=== PATIENT | female | born 1995 | race Caucasian/White ===

== ENCOUNTER 2018-06-16 23:35 | Observation (INO) ==
[2018-06-16 19:17] LABS: Lymphocytes % 6.4 %; Monocytes % 4.1 %; Red Cell Distribution Width 12.5 % (11.5-14.5)
[2018-06-16 19:19] LABS: Basophils # 0.1 K/mcL (0.0-0.2); Basophils % 0.2 %; Hematocrit 27.6 % (35.3-44.9); Hemoglobin 9.7 g/dL (11.5-15.4); Immature Granulocytes % 1.1 % (0-4); Lymphocytes # 2.7 K/mcL (0.6-4.6); Mean Corpuscular HGB Conc 35.1 g/dL (31.6-35.5); Mean Corpuscular Hemoglobin 30.2 pg (28.0-33.3); Monocytes # 1.7 K/mcL (0.0-1.3); Platelet Count 185 K/mcL (140-400); Red Blood Count 3.21 M/mcL (3.82-4.97); Segmented Neutrophils % 88.2 %
[2018-06-16 19:27] LABS: INR 0.9; Prothrombin Time 10.4 Seconds (9.4-12.1)
[2018-06-16 19:29] LABS: Activated Partial Thrombo Time 28.5 Seconds (26.0-36.0)
[2018-06-16 20:22] LABS: Bilirubin,Urine Negative (Negative); Blood,Urine Moderate (Negative); Clarity,Urine Clear (Clear); Color,Urine Yellow (Yellow); Glucose,Urine (UA) 100 mg/dL (Normal); Ketones,Urine 40 mg/dL (Negative); Leukocyte Esterase,Urine Negative (Negative); Nitrite,Urine Negative (Negative); Protein,Urine 100 mg/dL (Neg-Trace); Specific Gravity,Urine 1.012 (1.010-1.025); Urobilinogen,Urine Normal (Normal)
[2018-06-16 20:24] LABS: Bacteria,Urine None Seen per hpf (None-Few); RBC,Urine 15-30 per hpf (0-3); Squamous Epithelial Cell,Urine Many per lpf (None-Few)
[2018-06-16 20:58] LABS: Hyaline Casts,Urine Few per lpf (None-Few)
[~2018-06-16 23:35] MED LIST: Lidocaine -MPF 1% 2 ML VIAL INFILT ONE; Ringers Solution, Lactated 1,000 ML IVC SCH; miSOPROStol 100 MCG TABLET RC STA
[2018-06-17 04:22] LABS: Basophils % 0.1 %; Immature Granulocytes % 0.6 % (0-4); Red Cell Distribution Width 12.7 % (11.5-14.5)
[2018-06-17 04:24] LABS: Hematocrit 22.9 % (35.3-44.9); Hemoglobin 8.3 g/dL (11.5-15.4); Lymphocytes # 3.8 K/mcL (0.6-4.6); Lymphocytes % 14.6 %; Mean Corpuscular HGB Conc 36.2 g/dL (31.6-35.5); Mean Corpuscular Volume 85.4 fL (83.0-100.0); Mean Platelet Volume 10.7 fL (9.4-12.4); Monocytes # 1.2 K/mcL (0.0-1.3); Monocytes % 4.7 %; Neutrophils # 20.8 K/mcL (1.6-8.9); Platelet Count 159 K/mcL (140-400); Red Blood Count 2.68 M/mcL (3.82-4.97)
[2018-06-17 05:33] LABS: Platelet Estimate Normal (Normal); Reactive Lymphocytes Present (Not Present)
[2018-06-17 05:34] LABS: Hypochromasia Present (Not Present)
--- NOTE | 2018-06-17 08:19 | OB/GYN History & Physical ---
Date of Encounter: 06/16/18 Time of Encounter: 18:00 Assessment and Plan (1) Status post vaginal delivery Current visit: Yes Status: Acute Increased WBC s/p Admit for observation Consider abx if WBC doesn't fall (2) hemorrhage Current visit: Yes Status: Acute 800mcg cytotec given rectally bleeding stopped will admit for observation of bleeding Qualifiers: hemorrhage type: third-stage Qualified Code(s): O72.0 - Third- stage hemorrhage History of Present Illness Chief complaint: PPH HPI: Ms. Bush is a 22 year old female G1 now P1 who is 2 hours pp presenting from [facility] with PPH. Per [facility] she lost about 1100 cc of blood after delivering her baby. She reports she feels lightheaded and dizzy. GBS+ Past Med Surg Social Fam HX - Past Medical History Medical history: no medical history Psychiatric history: no psych history - Past Surgical History Surgical History: no surgical history - Social History Smoking Status: Never smoker Smokeless Tobacco Status: No Alcohol use: none Drug use: none Obstetrical History - Pregnancies : 1 Para: 0 Term: 0 : 0 Ab's: 0 Livin Medications and Allergies Allergy/AdvReac Type Severity Reaction Status Date / Time No Known Allergies Allergy Verified 06/17/18 04:54 Review of System OB All systems PM: reviewed and no additional remarkable complaints except as stated Exam - Vital Signs Vital signs: Initial Vital Signs Temp Pulse Resp BP Pulse Ox 98.2 F 108 14 119/77 99 06/16/18 23:30 06/16/18 23:30 06/16/18 23:30 06/16/18 23:30 06/16/18 23:30 - Constitutional Constitutional: well developed, well nourished, average body habitus, moderate distress - HEENT HEENT: Normocephaly, Mucus Membranes Moist - Neck Neck exam: full ROM - Lungs Respiratory exam: CTAB - Cardiovascular Cardiovascular exam: RRR, +S1, +S2 - Breasts Breast: bilateral: normal - Abdomen Abdomen: Present: bowel sounds normal, non tender - Extremities Extremities exam: normal capillary refill, normal inspection, radial pulses palpable and symmetrical - Vulva Vulva: bilateral: normal - Vagina Vagina: Present: normal moisture - Uterus Uterus exam: Present: normal size, normal contour - Adnexa Adnexa: bilateral: normal Results Result Diagrams: 06/17/18 04:05 Abnormal lab results WBC 26.0 K/mcL (4.3-11.1) H 06/17/18 04:05 RBC 2.68 M/mcL (3.82-4.97) L 06/17/18 04:05 Hgb 8.3 g/dL (11.5-15.4) L 06/17/18 04:05 Hct 22.9 % (35.3-44.9) L 06/17/18 04:05 MCHC 36.2 g/dL (31.6-35.5) H 06/17/18 04:05 Neutrophils # 20.8 K/mcL (1.6-8.9) H 06/17/18 04:05 Reactive Lymphocytes Present (Not Present) A 06/17/18 04:05 Hypochromasia Present (Not Present) A 06/17/18 04:05 D-Dimer 6521 ng/mLFEU (0-500) H 06/16/18 18:50 Urine Protein 100 mg/dL (Neg-Trace) H 06/16/18 20:08 Urine Glucose (UA) 100 mg/dL (Normal) H 06/16/18 20:08 Urine Ketones 40 mg/dL (Negative) H 06/16/18 20:08 Urine Blood Moderate (Negative) H 06/16/18 20:08 Urine Microscopic RBC 15-30 per hpf (0-3) H 06/16/18 20:08 Urine Microscopic WBC 3-5 per hpf (0-3) H 06/16/18 20:08 Ur Squamous Epith Cells Many per lpf (None-Few) H 06/16/18 20:08 All other labs normal. - VTE Reasons for not Prescribing Prophylaxis: Treatment not Indicated - Low risk for VTE
[2018-06-17 08:24] VITALS: BP 113/77
--- NOTE | 2018-06-17 08:28 | Discharge Summary ---
Date of Encounter: 06/17/18 Time of Encounter: 08:26 - Discharge Diagnosis (1) Status post vaginal delivery Priority: Primary Status: Acute Comments: Follow up with center midwives as planned return for complications as needed Discharge home (2) hemorrhage Priority: Secondary Status: Acute Qualifiers: hemorrhage type: third-stage Qualified Code(s): O72.0 - Third- stage hemorrhage - Discharge Medications Allergies/Adverse Reactions: Allergy/AdvReac Type Severity Reaction Status Date / Time No Known Allergies Allergy Verified 06/17/18 04:54 Data Procedures and tests throughout hospitalization: Laboratory Tests 06/16/18 06/16/18 06/16/18 18:50 18:50 18:50 WBC 41.9 H* RBC 3.21 L Hgb 9.7 L Hct 27.6 L MCV 86.0 MCH 30.2 MCHC 35.1 RDW 12.5 Plt Count 185 MPV 11.0 Immature Gran % 1.1 Seg Neutrophils % 88.2 Lymphocytes % 6.4 Monocytes % 4.1 Eosinophils % 0.0 Basophils % 0.2 Neutrophils # 37.0 H Lymphocytes # 2.7 Monocytes # 1.7 H Eosinophils # 0.0 Basophils # 0.1 Reactive Lymphocytes Platelet Estimate Hypochromasia PT 10.4 INR 0.9 APTT 28.5 Fibrinogen 246 D-Dimer 6521 H Urine Color Urine Clarity Urine pH Ur Specific [place] Urine Protein Urine Glucose (UA) Urine Ketones Urine Blood Urine Nitrite Urine Bilirubin Urine Urobilinogen Ur Leukocyte Esterase Urine Microscopic RBC Urine Microscopic WBC Ur Squamous Epith Cells Urine Bacteria Hyaline Casts Blood Type A POSITIVE Antibody Screen NEGATIVE 06/16/18 06/17/18 20:08 04:05 WBC 26.0 H RBC 2.68 L Hgb 8.3 L Hct 22.9 L MCV 85.4 MCH 31.0 MCHC 36.2 H RDW 12.7 Plt Count 159 MPV 10.7 Immature Gran % 0.6 Seg Neutrophils % 80.0 Lymphocytes % 14.6 Monocytes % 4.7 Eosinophils % 0.0 Basophils % 0.1 Neutrophils # 20.8 H Lymphocytes # 3.8 Monocytes # 1.2 Eosinophils # 0.0 Basophils # 0.0 Reactive Lymphocytes Present A Platelet Estimate Normal Hypochromasia Present A PT INR APTT Fibrinogen D-Dimer Urine Color Yellow Urine Clarity Clear Urine pH 6.0 Ur Specific [place] 1.012 Urine Protein 100 H Urine Glucose (UA) 100 H Urine Ketones 40 H Urine Blood Moderate H Urine Nitrite Negative Urine Bilirubin Negative Urine Urobilinogen Normal Ur Leukocyte Esterase Negative Urine Microscopic RBC 15-30 H Urine Microscopic WBC 3-5 H Ur Squamous Epith Cells Many H Urine Bacteria None Seen Hyaline Casts Few Blood Type Antibody Screen Labs on day of discharge: Labs from last 24 hours 06/17/18 06/16/18 06/16/18 04:05 20:08 18:50 WBC 26.0 H RBC 2.68 L Hgb 8.3 L Hct 22.9 L MCV 85.4 MCH 31.0 MCHC 36.2 H RDW 12.7 Plt Count 159 MPV 10.7 Immature Gran % 0.6 Seg Neutrophils % 80.0 Lymphocytes % 14.6 Monocytes % 4.7 Eosinophils % 0.0 Basophils % 0.1 Neutrophils # 20.8 H Lymphocytes # 3.8 Monocytes # 1.2 Eosinophils # 0.0 Basophils # 0.0 Reactive Lymphocytes Present A Platelet Estimate Normal Hypochromasia Present A PT INR APTT Fibrinogen D-Dimer Urine Color Yellow Urine Clarity Clear Urine pH 6.0 Ur Specific [place] 1.012 Urine Protein 100 H Urine Glucose (UA) 100 H Urine Ketones 40 H Urine Blood Moderate H Urine Nitrite Negative Urine Bilirubin Negative Urine Urobilinogen Normal Ur Leukocyte Esterase Negative Urine Microscopic RBC 15-30 H Urine Microscopic WBC 3-5 H Ur Squamous Epith Cells Many H Urine Bacteria None Seen Hyaline Casts Few Blood Type A POSITIVE Antibody Screen NEGATIVE 06/16/18 06/16/18 18:50 18:50 WBC 41.9 H* RBC 3.21 L Hgb 9.7 L Hct 27.6 L MCV 86.0 MCH 30.2 MCHC 35.1 RDW 12.5 Plt Count 185 MPV 11.0 Immature Gran % 1.1 Seg Neutrophils % 88.2 Lymphocytes % 6.4 Monocytes % 4.1 Eosinophils % 0.0 Basophils % 0.2 Neutrophils # 37.0 H Lymphocytes # 2.7 Monocytes # 1.7 H Eosinophils # 0.0 Basophils # 0.1 Reactive Lymphocytes Platelet Estimate Hypochromasia PT 10.4 INR 0.9 APTT 28.5 Fibrinogen 246 D-Dimer 6521 H Urine Color Urine Clarity Urine pH Ur Specific [place] Urine Protein Urine Glucose (UA) Urine Ketones Urine Blood Urine Nitrite Urine Bilirubin Urine Urobilinogen Ur Leukocyte Esterase Urine Microscopic RBC Urine Microscopic WBC Ur Squamous Epith Cells Urine Bacteria Hyaline Casts Blood Type Antibody Screen Date of admission: 06/16/18 18:48 Primary care physician: PCP NONE Discharging clinician: Kimebr Dixon Anticipated date of discharge: 06/17/18 - Patient Status Disposition: Home, Self-Care Condition: Good Functional capacity at discharge: independent ambulation Overall status at discharge: patient is progressing back to baseline - Discharge Instructions Follow Up With: NONE,PCP [Primary Care Provider] - - Diet and Activity Activity: increase activity as tolerated Diet: regular diet Hospital Course TRANSFER SPECIALIST Reason for admission: other Discharge diagnosis: other Hospital course: Patient presented 2 hours status post spontaneous vaginal delivery of a [facility]. She arrived with bleeding mostly under control. Uterine exploration was performed under ultrasound guidance and a large clot was removed from the uterus. And a micrograms of Cytotec was given rectally. Bleeding subsided and she was admitted for observation secondary to severely elevated white blood cell count and questionable hemoglobin. After 12 hours of monitoring her white blood cell count decreased by half and her hemoglobin remained stable. She will be discharged home in stable condition with follow-up at the center. Time Attestation: Total time spent providing and/or coordinating discharge services: Time Spent: Less than 30 minutes Exam - Constitutional Vitals: Temp Pulse Resp BP Pulse Ox 97.5 F L 105 14 113/77 99 06/17/18 08:24 06/17/18 08:24 06/17/18 08:24 06/17/18 08:24 06/17/18 08:24 General appearance IM: A&O X 3 - Respiratory Respiratory exam: Present: CTAB - Cardiovascular Cardiovascular exam IM: Present: RRR, +S1, +S2 - GI/Abdominal GI/Abdominal exam IM: normal bowel sounds, no peritoneal signs - Rectal Rectal exam: deferred - Uterine Tone: Firm Uterus Position: 4 Fingers Below Umbilicus, Midline - Extremities Exam Extremities exam IM: Present: normal capillary refill, normal inspection, radial pulses palpable and symmetrical - Neurological Exam Neurological exam: alert, CN II-XII intact, normal gait, oriented X3, reflexes normal, no focal deficits, strengths equal and symetr throughout - VTE Reasons for not Prescribing Prophylaxis: Treatment not Indicated - Low risk for VTE
[2018-06-17] MEDS ORDERED: *HR* Oxytocin 10 UNIT/ML VIAL IM ONE (08:51)
[2018-06-17] MEDS ORDERED: miSOPROStol 100 MCG TABLET PO ONE (08:51)
== END 2018-06-17 08:52 | disposition home or self-care (01) ==
LOC: 1NENULAB → 1NENUOBS 23:35
PROVIDERS: ADMIT Obstetrics & Gynecology; ATTEND Obstetrics & Gynecology

== ENCOUNTER → 2019-10-02 22:21 | Observation (INO) | END | disposition home or self-care (01) | LOC: 1NENULAB | PROVIDERS: ADMIT Obstetrics & Gynecology; ATTEND Obstetrics & Gynecology ==

== ENCOUNTER 2019-11-04 19:17 | Inpatient (IN) ==
[2019-11-04 19:07] LABS: Basophils % 0.2 %; Eosinophils % 0.3 %; Hematocrit 42.8 % (35.3-44.9); Hemoglobin 14.5 g/dL (11.5-15.4); Immature Granulocytes % 0.5 % (0-4); Lymphocytes # 2.2 K/mcL (0.6-4.6); Lymphocytes % 14.4 %; Mean Corpuscular HGB Conc 33.9 g/dL (31.6-35.5); Mean Corpuscular Hemoglobin 30.3 pg (28.0-33.3); Mean Corpuscular Volume 89.4 fL (83.0-100.0); Mean Platelet Volume 11.8 fL (9.4-12.4); Monocytes # 0.7 K/mcL (0.0-1.3); Monocytes % 4.7 %; Platelet Count 277 K/mcL (140-400); Red Blood Count 4.79 M/mcL (3.82-4.97); Segmented Neutrophils % 79.9 %
[~2019-11-04 19:17] MED LIST changes: +EPHEDrine 50 MG/ML VIAL IVP PRN; +Epidural Premix (fent/bupiv) 110 ML EP SCH; -Lidocaine -MPF 1% 2 ML VIAL INFILT ONE; +Lidocaine 1% 20 ML MDV ONE; -Ringers Solution, Lactated 1,000 ML IVC SCH; -miSOPROStol 100 MCG TABLET RC STA
[2019-11-04] MEDS ORDERED: Benzocaine/Menthol 56 GM AEROSOL SPRAY TP PRN (20:16)
[2019-11-04] MEDS ORDERED: Oxytocin 20 units/ LR 1000 mL 20 UNIT/1,000 ML BAG IVC SCH (20:16)
[2019-11-04] MEDS ORDERED: Acetaminophen 325 MG TABLET PO PRN (20:16)
[2019-11-04] MEDS ORDERED: Lanolin 7 G OINT...G. TP PRN (20:16)
[2019-11-04] MEDS: Ibuprofen 600 MG TABLET PO PRN (22:45)
[2019-11-05 06:30] LABS: Basophils % 0.2 %; Eosinophils % 0.2 %; Hematocrit 40.3 % (35.3-44.9); Hemoglobin 13.9 g/dL (11.5-15.4); Immature Granulocytes % 0.6 % (0-4); Lymphocytes # 2.5 K/mcL (0.6-4.6); Lymphocytes % 13.1 %; Mean Corpuscular HGB Conc 34.5 g/dL (31.6-35.5); Mean Corpuscular Hemoglobin 30.9 pg (28.0-33.3); Mean Corpuscular Volume 89.6 fL (83.0-100.0); Mean Platelet Volume 9.9 fL (9.4-12.4); Monocytes # 1.2 K/mcL (0.0-1.3); Monocytes % 6.1 %; Neutrophils # 15.1 K/mcL (1.6-8.9); Platelet Count 243 K/mcL (140-400); Red Cell Distribution Width 13.2 % (11.5-14.5); Segmented Neutrophils % 79.8 %; White Blood Count 18.9 K/mcL (4.3-11.1)
[2019-11-05] MEDS: Ibuprofen 600 MG TABLET PO PRN (08:06)
[2019-11-05] MEDS ORDERED: Prenatal Vit/FA 1 EACH TABLET PO SCH (09:00)
[2019-11-05 16:31] VITALS: BP 111/69
== END 2019-11-05 17:58 | disposition home or self-care (01) | DRG 807 ==
LOC: 1NENULAB → 1NENUOBS 20:07
PROVIDERS: ADMIT Obstetrics & Gynecology; ATTEND Obstetrics & Gynecology